=== PATIENT | female | born 1950 | race American Indian/Alaskan Native ===

== ENCOUNTER 2017-05-18 17:36 | Emergency (ER) | payer OTHER, MEDICARE ==
[2017-05-18] MEDS ORDERED: FLEXERIL PO ONE (20:35)
[2017-05-18] MEDS ORDERED: NORCO 5/325 PO ONE (20:35)
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
[2017-05-18 22:41] VITALS: BP 138/77
== END 2017-05-18 22:44 | disposition home or self-care (01) ==
LOC: ED 17:36
DX: M54.2 Cervicalgia (principal); E11.9 Type 2 diabetes mellitus without complications; I10 Essential (primary) hypertension; V49.59XA Passenger injured in collision with other motor vehicles in traffic accident, initial encounter; X58.XXXA Exposure to other specified factors, initial encounter; Y93.9 Activity, unspecified; Y92.9 Unspecified place or not applicable; Y99.9 Unspecified external cause status
CPT/HCPCS: 70450; 72125